=== PATIENT | female | born 1960 | race Caucasian/White ===

== ENCOUNTER 2017-01-05 07:10 | Inpatient (IN) | payer OTHER ==
[~2017-01-05] VITALS: Ht 182.9 cm; Wt 103.0 kg
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
[2017-01-05 07:10] VITALS: BP 128/86
[~2017-01-05 07:10] MED LIST: ACTOS15 MG PO; AMBIEN 10 MG TA10 MG PO; AMBIEN 5 MG TABL5 M1 PO; ASA81BEC PO; BACLOFEN20 MG PO; BUSPIRONE HCL10 MG PO; BUSPIRONE HCL5 MG PO; CLONAZEPAM 1 MG1 M1 PO; DOXEPIN 10 MG C10 MG PO; ESTRACE2 M3 PO; GABAPENTIN 100100 MG PO; JANUVIA100 MG PO; KLOR-CON 1010 MEQ PO; KLOR-CON M2020 MEQ PO; LEVAQUIN 500 M500 M2 PO; LEVOTHYROXIN0.175 MG PO; LEVOTHYROXINE0.2 M1 PO; LIPITOR 20 MG T20 M1 PO; LOPRESSOR50 PO; LYRICA25 MG PO; MORPHINE SULFAT15 M3 PO; MORPHINE SULFAT15 M4 PO; MS CONTIN 30 MG30 MG PO; MS CONTIN15 MG PO; NEURONTIN 400M400 M2 PO; NYSTATIN 100,0015 G1 TP; OMEPRAZOLE 20 M20 M1 PO; REMERON15 MG PO; TOPAMAX 25 MG T25 M1 PG; TOPAMAX50 MG PO; VENTOLIN HFA 1818 GM INH; [UNRECOGNIZED DRUG - OTHER] PO
[2017-01-05 07:36] LABS: ABSOLUTE NEUTROPHILS 10.5 thou/uL (1.4-8.2); BASOPHILS 0.7 % (0.0-2.0); EOSINOPHILS 0.1 % (0.0-3.0); HEMATOCRIT 46.6 % (37.0-47.0); HEMOGLOBIN 15.4 gm/dL (12.0-15.0); LYMPHOCYTES 11.7 % (24.0-44.0); MCH 31.3 pg (26.0-34.0); MCHC 33.1 g/dL (28.0-37.0); MCV 94.6 fL (80.0-100.0); MONOCYTES 3.8 % (1.0-8.0); PLATELET COUNT 177 thou/uL (150-400); POLYS 83.7 % (36.0-66.0); RBC 4.92 mil/uL (4.20-5.00); RDW 15.4 % (10.5-14.5); WBC 12.6 thou/uL (4.0-11.0)
[2017-01-05 07:40] LABS: MANUAL DIFF NO
[2017-01-05 08:46] LABS: ANION GAP 11 mmol/L (7-16); BUN 11 mg/dL (7-18); CALCIUM 8.8 mg/dL (8.5-10.1); CHLORIDE 105 mmol/L (98-107); CO2 24 mmol/L (21-32); CREATININE 0.7 mg/dL (0.6-1.3); GLUCOSE 155 mg/dL (70-99); SODIUM 140 mmol/L (136-145)
[2017-01-05 08:55] LABS: ALBUMIN 3.3 g/dL (3.4-5.0); ALKALINE PHOSPHATASE 143 U/L (46-116); DIRECT BILIRUBIN 0.2 mg/dL (<0.1-0.3); SGOT 18 U/L (15-37); SGPT 13 U/L (30-65); TOTAL BILIRUBIN 0.6 mg/dL (<0.1-1.0); TOTAL PROTEIN 6.8 g/dL (6.4-8.2); TROPONIN-I < 0.04 ng/mL (<0.04-0.07)
[2017-01-05 10:52] LABS: URINE BILIRUBIN NEGATIVE (Negative); URINE BLOOD NEGATIVE (Negative); URINE COLOR YELLOW; URINE GLUCOSE-RANDOM* NEGATIVE (Negative); URINE KETONES 1+ (Negative); URINE LEUKOCYTES-REFLEX NEGATIVE (Negative); URINE PROTEIN (DIPSTICK) NEGATIVE (Negative)
[2017-01-05 11:09] VITALS: BP 168/91
[2017-01-05 16:05] VITALS: BP 147/74
[2017-01-05 20:00] VITALS: BP 128/68
[2017-01-06 06:15] VITALS: BP 147/76
[2017-01-06 06:34] LABS: ALBUMIN 3.1 g/dL (3.4-5.0); CALCIUM 8.5 mg/dL (8.5-10.1); CREATININE 0.7 mg/dL (0.6-1.0); MAGNESIUM 1.9 mg/dL (1.8-2.4); POTASSIUM 3.6 mmol/L (3.5-5.1); TOTAL BILIRUBIN 0.8 mg/dL (<0.1-1.0); TOTAL PROTEIN 5.9 g/dL (6.4-8.2)
[2017-01-06 07:55] VITALS: BP 134/78
[2017-01-06 16:23] VITALS: BP 134/78
[2017-01-06 17:40] VITALS: BP 132/95
[2017-01-06 20:35] VITALS: BP 156/72
[2017-01-07 05:06] VITALS: BP 151/67
[2017-01-07 07:40] VITALS: BP 149/75
[2017-01-07 11:50] VITALS: BP 153/77
[2017-01-07 15:25] VITALS: BP 166/81
[2017-01-07 20:22] VITALS: BP 156/76
[2017-01-08] VITALS: BP 152/81
[2017-01-08 04:00] VITALS: BP 160/80
[2017-01-08] MEDS ORDERED: COLACE 100 MG100 MG PO (09:27)
[2017-01-08] MEDS ORDERED: MIRALAX17 GM PO (09:27)
[2017-01-08 10:48] VITALS: BP 160/80
[2017-01-08 12:17] VITALS: BP 160/80
== END 2017-01-08 13:07 | disposition home or self-care (01) | DRG 392 ==
LOC: ER 07:10 → 3N 10:26 → EROBS 10:26 → 3N 12:03
PROVIDERS: Emergency Medicine; Hospitalist
DX: K59.03 Drug induced constipation (principal); K56.7 Ileus, unspecified; E11.9 Type 2 diabetes mellitus without complications; R19.7 Diarrhea, unspecified; G40.909 Epilepsy, unspecified, not intractable, without status epilepticus; G89.29 Other chronic pain; M54.9 Dorsalgia, unspecified; E03.9 Hypothyroidism, unspecified; T40.605A Adverse effect of unspecified narcotics, initial encounter; J45.909 Unspecified asthma, uncomplicated; F17.210 Nicotine dependence, cigarettes, uncomplicated; Z79.82 Long term (current) use of aspirin; Z79.899 Other long term (current) drug therapy; Z86.73 Personal history of transient ischemic attack (TIA), and cerebral infarction without residual deficits; I25.2 Old myocardial infarction; Z88.2 Allergy status to sulfonamides
CPT/HCPCS: 10096